=== PATIENT | female | born 1940 | race Caucasian/White ===

== ENCOUNTER 2018-07-25 06:31 | Day surgery (SDC) | payer MEDICARE ==
[~2018-07-25] VITALS: Ht 165.1 cm; Wt 72.6 kg
[~2018-07-25 06:31] MED LIST: Aspir 8181 MG PO; CALCIUM 600 +1 EAC4 PO; LEVSOD100 PO; Prinivil10 MG PO
--- NOTE | 2018-07-25 07:18 | NUR ---
07/25/18 0718 Lizbet Humphrey V PT RESTING IN BED, SIDE RAILS IN PLACE, CALL LIGHT WITHIN REACH. VSS. PT STATES SHE IS COMFORTABLE AND DOES NOT NEED ANYTHING AT THIS TIME. PHARMACY WAS CONSULTED IN REGARDS TO PTS NOVOCAIN ALLERGY AND DR. LEWIS'S ORDER FOR LIDOCAIN SLURY EYE DROPS. PHARMACY SAID IT WAS SAFE TO USE AND DR. LEWIS SAID TO PROCEED WITH LIDOCAIN EYE DROPS. NO REACTION IN PT AFTER ADMINISTRATION AT THIS TIME.
--- NOTE | 2018-07-25 07:57 | NUR ---
07/25/18 0757 Nara Steele EYES SLIGHTLY PUFFY BILAT WITH REDNESS AROUND THE RIMS OF THE LIDS
--- NOTE | 2018-07-25 14:22 | NUR ---
07/25/18 1422 Salvatore Mansfield LATE ENTRY NARRATIVE PATIENT INTO SDU RECLINER, VSS, TOLERATING PO FLUIDS WELL, DENIES PAIN OR N/V AT THIS TIME. PATIENT'S SISTERS ARE CHAIRSIDE. DC INSTRUCTIONS REVIEWED WITH PATIENT, NO QUESTIONS AT THIS TIME. NURSE ASSISTED PATIENT WALK OUT TO HER RIDE HOME.
== END 2018-07-25 09:00 | disposition home or self-care (01) ==
LOC: ORSCSDS 06:31
PROVIDERS: Ophthalmology
PROC: 08RJ3JZ Replacement of Right Lens with Synthetic Substitute, Percutaneous Approach (ICD-10-PCS; principal; 2018-07-25 08:00)
DX: H25.11 Age-related nuclear cataract, right eye (principal); E03.9 Hypothyroidism, unspecified; I10 Essential (primary) hypertension; F17.210 Nicotine dependence, cigarettes, uncomplicated; Z79.899 Other long term (current) drug therapy
CPT/HCPCS: J2001; J2250; J3010; J3301; V2632

== ENCOUNTER 2018-09-12 06:55 | Day surgery (SDC) | payer MEDICARE ==
[~2018-09-12] VITALS: Ht 165.1 cm; Wt 72.4 kg
== END 2018-09-12 09:16 | disposition home or self-care (01) ==
LOC: ORSCSDS 06:55
PROVIDERS: Ophthalmology
PROC: 08RK3JZ Replacement of Left Lens with Synthetic Substitute, Percutaneous Approach (ICD-10-PCS; principal; 2018-09-12 08:30)
DX: H25.12 Age-related nuclear cataract, left eye (principal); I10 Essential (primary) hypertension; F17.210 Nicotine dependence, cigarettes, uncomplicated; E03.9 Hypothyroidism, unspecified; Z79.899 Other long term (current) drug therapy; Z79.82 Long term (current) use of aspirin
CPT/HCPCS: J2001; J3010; J3301; J7120; V2632

== ENCOUNTER → 2019-09-23 | Outpatient (CLI) | payer MEDICARE | END | disposition home or self-care (01) | LOC: LAB 08:56 → LAB SHORT 08:56 | DX: R53.83 Other fatigue (principal) | CPT/HCPCS: 87086 ==

== ENCOUNTER → 2022-12-07 | Outpatient (CLI) | payer MEDICARE | END | disposition home or self-care (01) | LOC: LAB 12:56 → LAB SHORT 12:56 → PLD 12:56 | DX: D48.5 Neoplasm of uncertain behavior of skin (principal) | CPT/HCPCS: 88305 ==

== ENCOUNTER → 2023-02-03 | Outpatient (CLI) | payer MEDICARE ==
[2023-02-03 11:48] LABS: Bun/Creatinine Ratio 22.9 (12.0-20.0); Calcium, Blood 9.4 mg/dL (8.5-10.1); Creatinine, Blood 0.83 mg/dL (0.40-1.00); Potassium, Blood 4.7 mmol/L (3.5-5.5)
== END | disposition home or self-care (01) ==
LOC: LAB SHORT 10:40 → LAB 10:40
PROVIDERS: Nurse Practitioner Family
DX: I10 Essential (primary) hypertension (principal)
CPT/HCPCS: 36415; 80048

== ENCOUNTER 2023-11-03 09:04 | Day surgery (SDC) | payer OTHER ==
[~2023-11-03] VITALS: Ht 165.1 cm; Wt 63.1 kg
[~2023-11-03 09:04] MED LIST changes: +AMLO10 PO; +LEVSOD25 PO; +Lactated Ringer's 1,000 ML IV ONE; +Lisinopril2.5 MG PO; +propofoL 50 ML IV ONE
[2023-11-03] MEDS ORDERED: Lactated Ringer's 1,000 ML IV ONE (09:55)
[2023-11-03 11:50] VITALS: BP 166/73
== END 2023-11-03 11:48 | disposition home or self-care (01) ==
LOC: ORSCSDS 09:04
PROVIDERS: Surgery
PROC: 0DJD8ZZ Inspection of Lower Intestinal Tract, Via Natural or Artificial Opening Endoscopic (ICD-10-PCS; principal; 2023-11-03 10:15)
PROC: 0DB68ZX Excision of Stomach, Via Natural or Artificial Opening Endoscopic, Diagnostic (ICD-10-PCS; principal; 2023-11-03 10:15)
DX: R19.4 Change in bowel habit (principal); K57.30 Diverticulosis of large intestine without perforation or abscess without bleeding; R10.13 Epigastric pain; K29.70 Gastritis, unspecified, without bleeding; K44.9 Diaphragmatic hernia without obstruction or gangrene; R14.2 Eructation; R73.03 Prediabetes; I12.9 Hypertensive chronic kidney disease with stage 1 through stage 4 chronic kidney disease, or unspecified chronic kidney disease; N18.2 Chronic kidney disease, stage 2 (mild); E03.9 Hypothyroidism, unspecified; Z79.82 Long term (current) use of aspirin; Z79.899 Other long term (current) drug therapy; F17.210 Nicotine dependence, cigarettes, uncomplicated
CPT/HCPCS: 88305; 88342; J2704; J7120

== ENCOUNTER 2024-01-22 07:52 | Emergency (ER) | payer OTHER ==
[~2024-01-22] VITALS: Ht 165.1 cm; Wt 55.8 kg
[~2024-01-22 07:52] MED LIST changes: -Lactated Ringer's 1,000 ML IV ONE; -propofoL 50 ML IV ONE
[2024-01-22 08:29] LABS: BASOPHILS ABSOLUTE AUTO 0.07 K/mm3 (0.00-0.23); BASOPHILS PERCENT AUTO 0 % (0-2); EOSINOPHILS ABSOLUTE AUTO 0.01 K/mm3 (0.00-0.68); EOSINOPHILS PERCENT AUTO 0 % (0-6); Hematocrit 42.3 % (33.0-51.0); IMMATURE GRAN ABSOLUTE AUTO 0.11 K/mm3 (0.00-0.10); IMMATURE GRAN PERCENT AUTO 1 % (0-1); LYMPHOCYTES ABSOLUTE AUTO 0.85 K/mm3 (0.84-5.20); LYMPHOCYTES PERCENT AUTO 4 % (21-46); MONOCYTES ABSOLUTE AUTO 2.16 K/mm3 (0.16-1.47); MONOCYTES PERCENT AUTO 9 % (4-13); Mean Corpuscular HGB 28.6 pg (26.0-34.0); Mean Corpuscular HGB Conc 33.1 g/dL (31.5-36.5); Mean Corpuscular Volume 87 fL (80-100); Mean Platelet Volume 12.3 fL (9.1-12.4); NEUTROPHILS PERCENT AUTO 86 % (41-73); Platelet Count 278 K/mm3 (150-400); RDW Coefficient Variation 13.6 % (11.7-14.2); RDW Standard Deviation 43.5 fL (35.1-46.3); Red Blood Cell Count 4.89 M/mm3 (3.80-5.20)
[2024-01-22 08:40] LABS: Magnesium, Blood 2.4 mg/dL (1.6-2.4)
[2024-01-22 08:41] LABS: Albumin, Blood 3.5 g/dL (3.4-5.0); Bilirubin, Total 0.9 mg/dL (0.1-1.0); Bun/Creatinine Ratio 23.3 (12.0-20.0); Calcium, Blood 9.5 mg/dL (8.5-10.1); Creatinine, Blood 0.73 mg/dL (0.40-1.00); Globulin, Blood 3.6 g/dL (2.2-4.0); Phosphorus, Blood 2.8 mg/dL (2.5-4.9); Potassium, Blood 2.8 mmol/L (3.5-5.5); Total Protein, Blood 7.1 g/dL (6.4-8.2)
[2024-01-22 08:50] LABS: BASOPHILS PERCENT MAN 0 % (0-2); EOSINOPHILS PERCENT MAN 0 % (0-6); LYMPHOCYTES ABSOLUTE MAN 0.93 K/mm3 (0.84-5.20); LYMPHOCYTES PERCENT MAN 4 % (21-46); MONOCYTES ABSOLUTE MAN 2.34 K/mm3 (0.16-1.47); MONOCYTES PERCENT MAN 10 % (4-13); NEUTROPHILS ABSOLUTE MAN 20.12 K/mm3 (1.96-9.15); SEG NEUTROPHILS PERCENT MAN 86 % (41-73); TOTAL CELLS COUNTED 100
[2024-01-22 10:15] VITALS: BP 166/57
[2024-01-22] MEDS ORDERED: Percocet 5-3251 EACH PO (10:54)
[2024-01-22] MEDS ORDERED: DOC250 PO (10:54)
[2024-01-22] MEDS ORDERED: ONDA4ODT MM (10:54)
[2024-01-22] MEDS ORDERED: OXYACE7.5T PO (10:55)
[2024-01-25] MEDS ORDERED: CALCIUM CIT 311 EAC7 PO (07:41)
[2024-01-25] MEDS ORDERED: ATORVASTATIN CA10 M1 PO (07:41)
[2024-01-25] MEDS ORDERED: HYDCHL12.5 PO (07:42)
[2024-01-25] MEDS ORDERED: CLOP75 PO (07:42)
[2024-01-29] MEDS ORDERED: Nexium40 MG PO (14:44)
[2024-01-29] MEDS ORDERED: ATOR10 PO (14:44)
[2024-01-29] MEDS ORDERED: PANT40 PO (14:44)
[2024-01-29] MEDS ORDERED: ASPI81CH PO (16:49)
== END 2024-01-22 11:18 | disposition home or self-care (01) ==
LOC: ER 07:52
PROVIDERS: Emergency Medicine
DX: K55.1 Chronic vascular disorders of intestine (principal); R10.13 Epigastric pain; G89.29 Other chronic pain; R11.2 Nausea with vomiting, unspecified; F17.210 Nicotine dependence, cigarettes, uncomplicated; E03.9 Hypothyroidism, unspecified; I10 Essential (primary) hypertension; Z79.899 Other long term (current) drug therapy; Z88.8 Allergy status to other drugs, medicaments and biological substances
CPT/HCPCS: 74177; 80053; 83735; 84100; 85025; 99284-25; Q9967